=== PATIENT | female | born 1945 | race Hispanic/Latino ===

== ENCOUNTER 2017-06-30 07:58 | Emergency (ER) | payer OTHER ==
[2017-06-30 08:16] VITALS: BMI 23.9
[2017-06-30 08:17] VITALS: TEMP 97.8
--- NOTE | 2017-06-30 08:29 | ED PDOC ---
Arrival/HPI - General Chief Complaint: Palpitations Time Seen by Provider: 06/30/17 08:13 Historian: Patient - History of Present Illness Narrative History of Present Illness (Text): 06/30/17 08:15 Phyllis Kline is a 71 year old female, whose past medical history includes hypertension, who presents to the emergency department complaining of palpitations and hypertension. Patient reports she also feels fatigue due to lack of sleep. Patient denies any chest pain, shortness of breath, abdominal pain, or other complaints. PMD: Dr. Shirley Larson Time/Duration: Prior to Arrival Symptom Onset: Sudden Symptom Course: Improving Past Medical History - Provider Review Nursing Documentation Reviewed: Yes - Infectious Disease Hx of Infectious Diseases: None - Tetanus Immunization Tetanus Immunization: Unknown - Cardiac Hx Hypertension: Yes - Psychiatric Hx Depression: No Hx Emotional Abuse: No Hx Physical Abuse: No Hx Substance Use: No - Surgical History Hx Section: Yes - Suicidal Assessment Feels Threatened In Home Enviroment: No Family/Social History - Physician Review Nursing Documentation Reviewed: Yes Family/Social History: Unknown Family HX Smoking Status: Never Smoked Hx Alcohol Use: No Hx Substance Use: No Hx Substance Use Treatment: No Allergies/Home Meds Allergies/Adverse Reactions: Allergies Penicillins Allergy (Verified 06/30/17 08:21) RASH Home Medications: Home Meds Medication Instructions Recorded Confirmed Escitalopram Oxalate [Lexapro] 10 mg PO DAILY 05/09/13 06/30/17 Valsartan [Diovan] 40 mg PO DAILY 06/30/17 06/30/17 Review of Systems - Review of Systems Constitutional: Fatigue. absent: Fevers Eyes: absent: Vision Changes Respiratory: absent: SOB, Cough Cardiovascular: Palpitations. absent: Chest Pain Gastrointestinal: absent: Abdominal Pain, Vomiting Genitourinary Female: absent: Dysuria Musculoskeletal: absent: Back Pain Neurological: absent: Headache Endocrine: absent: Diaphoresis Physical Exam Vital Signs Reviewed: Yes Vital Signs Temp Pulse Resp BP Pulse Ox 06/30/17 09:22 63 18 135/87 100 06/30/17 08:16 97.8 F 138 H 20 140/100 H 99 Temperature: Afebrile Blood Pressure: Hypertensive Pulse: Tachycardic Respiratory Rate: Normal Appearance: Positive for: Well-Appearing, Non-Toxic, Comfortable Pain Distress: None Mental Status: Positive for: Alert and Oriented X 3 - Systems Exam Head: Present: Atraumatic, Normocephalic Pupils: Present: PERRL Extroacular Muscles: Present: EOMI Conjunctiva: Present: Normal Respiratory/Chest: Present: Clear to Auscultation, Good Air Exchange. No: Respiratory Distress, Accessory Muscle Use Cardiovascular: Present: Regular Rate and Rhythm, Normal S1, S2. No: Murmurs Abdomen: Present: Normal Bowel Sounds. No: Tenderness, Distention, Peritoneal Signs, Rebound, Guarding Neurological: Present: GCS=15, CN II-XII Intact, Speech Normal Skin: Present: Warm, Dry, Normal Color. No: Rashes Psychiatric: Present: Alert, Oriented x 3, Normal Insight, Normal Concentration Medical Decision Making ED Course and Treatment: palitiations h/o of ablation - upon triage hr 140, however broke prior to my assessment. symptom free on my assessment 06/30/17 EKG: Ordered, reviewed, and independently interpreted the EKG. Rate : 82 BPM Rhythm : NSR Interpretation : PVC's. No ST-segment elevations or depressions, no T-wave inversions, normal intervals. 06/30/17 10:00 Chest X-ray: Creator : DR. Garcia, Kain OLIVO FINDINGS: LUNGS: No active pulmonary disease. PLEURA: No significant pleural effusion identified, no pneumothorax apparent. CARDIOVASCULAR: No radiographic findings to suggest acute or significant cardiovascular disease. OSSEOUS STRUCTURES: No significant abnormalities. VISUALIZED UPPER ABDOMEN: Normal. OTHER FINDINGS: None. IMPRESSION: No active disease. 06/30/17 11:12 requested pt be admitted and observed given triage hr 140. pt refuses, signs ama. - Lab Interpretations Lab Results: 06/30/17 08:30 06/30/17 08:30 Lab Results 06/30/17 08:30: Blood Type A POSITIVE, Antibody Screen Negative, BBK History Checked No verified bt 06/30/17 08:30: Sodium 139, Potassium 3.6, Chloride 103, Carbon Dioxide 25, Anion Gap 14, BUN 14, Creatinine 0.8, Est GFR ( Amer) > 60, Est GFR (Non- Af Amer) > 60, Random Glucose 106, Calcium 9.9, Magnesium 2.0, Total Bilirubin 1.3, AST 35, ALT 35, Alkaline Phosphatase 97, Lactate Dehydrogenase 475, Total Creatine Kinase 68, Troponin I < 0.01, Total Protein 7.5, Albumin 4.4, Globulin 3.2, Albumin/Globulin Ratio 1.4 06/30/17 08:30: PT 11.0, INR 1.00, APTT 31.6 06/30/17 08:30: WBC 5.8, RBC 4.82, Hgb 14.4, Hct 42.9, MCV 89.0, MCH 29.9, MCHC 33.6, RDW 14.2, Plt Count 232, MPV 10.2, Gran % 59.1, Lymph % (Auto) 29.4, [place] % (Auto) 8.8 H, Eos % (Auto) 2.2, Baso % (Auto) 0.5, Gran # 3.44, Lymph # 1.7, [place] # 0.5, Eos # 0.1, Baso # 0.03 I have reviewed the lab results: Yes - RAD Interpretation Radiology Orders: 06/30/17 08:24 CHEST PORTABLE [RAD] Stat Legal Records Clerk: Radiologist - EKG Interpretation Interpreted by ED Physician: Yes Type: 12 lead EKG - Scribe Statement The provider has reviewed the documentation as recorded by the Scribe Debo Acevedo Provider Scribe Attestation: All medical record entries made by the Scribe were at my direction and personally dictated by me. I have reviewed the chart and agree that the record accurately reflects my personal performance of the history, physical exam, medical decision making, and the department course for this patient. I have also personally directed, reviewed, and agree with the discharge instructions and disposition. Disposition/Present on Arrival - Present on Arrival Any Indicators Present on Arrival: No History of DVT/PE: No History of Uncontrolled Diabetes: No Urinary Catheter: No History of Decub. Ulcer: No History Surgical Site Infection Following: None - Disposition Have Diagnosis and Disposition been Completed?: Yes Diagnosis: Palpitations Disposition: AGAINST MEDICAL ADVICE Disposition Time: 09:30 Condition: STABLE Discharge Instructions (ExitCare): Chest Pain (ED), Palpitations (ED), Against Medical Advice (ED) Additional Instructions: you are declining admission. you are able to return to emergency room with worsening symptoms or concerns. Referrals: Shirley Castle MD [Primary Care Provider] - Follow up with primary Addis Tovar MD [Staff Provider] - Follow up with primary Forms: [employer] ([place])
[2017-06-30 08:43] LABS: BASO # 0.03 K/mm3 (0.0-2.0); BASO % 0.5 % (0.0-3.0); EOS # 0.1 (0.0-0.7); EOS % 2.2 % (1.5-5.0); GRAN # 3.44 (1.4-6.5); GRAN % 59.1 % (50.0-68.0); HEMATOCRIT 42.9 % (36.0-48.0); LYMPH # 1.7 (1.2-3.4); LYMPH % 29.4 % (22.0-35.0); MEAN CORPUSCULAR HEMOGLOBIN 29.9 pg (25.0-35.0); MEAN CORPUSCULAR HGB CONC 33.6 g/dl (31.0-37.0); MEAN PLATELET VOLUME 10.2 fl (7.0-11.0); MONO # 0.5 (0.1-0.6); MONO % 8.8 % (1.0-6.0); RED CELL DISTRIBUTION WIDTH 14.2 % (11.5-14.5); WHITE BLOOD COUNT 5.8 10^3/ul (4.5-11.0)
[2017-06-30 08:52] LABS: PARTIAL THROMBOPLASTIN TIME 31.6 Seconds (25.1-36.5)
[2017-06-30 08:54] LABS: ALB/GLOB RATIO 1.4 (1.1-1.8); ALKALINE PHOSPHATASE 97 U/L (38-126); ALT/SGPT 35 U/L (7-56); AST/SGOT 35 U/L (14-36); BILIRUBIN,TOTAL 1.3 mg/dL (0.2-1.3); BLOOD UREA NITROGEN 14 mg/dL (7-21); CALCIUM 9.9 mg/dL (8.4-10.5); CARBON DIOXIDE 25 mmol/L (21-33); CHLORIDE 103 mmol/L (98-107); GFR AFRICAN-AMERICAN > 60; GLUCOSE,RANDOM 106 mg/dL (70-110); POTASSIUM 3.6 mmol/L (3.6-5.0); SODIUM 139 mmol/L (132-148); TOTAL PROTEIN 7.5 g/dL (5.8-8.3)
[2017-06-30 09:05] LABS: TROPONIN I < 0.01 ng/mL
[2017-06-30 09:22] VITALS: BP 135/87; PULSE 63; RESP 18; O2SAT 100
--- NOTE | 2017-06-30 09:54 | RAD ---
HISTORY: Chest pain. COMPARISON: No prior. FINDINGS: LUNGS: No active pulmonary disease. PLEURA: No significant pleural effusion identified, no pneumothorax apparent. CARDIOVASCULAR: No radiographic findings to suggest acute or significant cardiovascular disease. OSSEOUS STRUCTURES: No significant abnormalities. VISUALIZED UPPER ABDOMEN: Normal. OTHER FINDINGS: None. IMPRESSION: No active disease.
--- NOTE | 2017-07-01 00:20 | CARD ---
APPROVED REPORT EKG Measurement Heart [id number] VT [id number] <Conclusion> Sinus rhythm with premature atrial complexes Nonspecific ST abnormality Abnormal ECG
== END 2017-06-30 09:31 | disposition left against medical advice (07) ==
LOC: ED 07:58
DX: R00.2 Palpitations (principal); I10 Essential (primary) hypertension; Z88.0 Allergy status to penicillin

== ENCOUNTER 2017-08-01 09:11 | Day surgery (SDC) | payer MEDICARE, OTHER ==
[2017-07-29 10:00] VITALS: BMI 25.7
[2017-08-01 10:57] VITALS: TEMP 98.1; O2SAT 98
[2017-08-01] MEDS ORDERED: Lidocaine 2% Inj (20ml) ONE (11:23)
[2017-08-01] MEDS ORDERED: Propofol 10 mg/ml Inj (20 ML) ONE (11:24)
[2017-08-01] MEDS ORDERED: Sodium Chloride 0.9% 1,000 ML IV SCH (11:45)
[2017-08-01 11:52] VITALS: PULSE 60
[2017-08-01 11:59] VITALS: BP 136/76; RESP 17
== END 2017-08-01 13:44 | disposition home or self-care (01) ==
LOC: ENDO 09:11
PROVIDERS: ATTEND Internal Medicine Gastroenterology
DX: K31.7 Polyp of stomach and duodenum (principal); K29.50 Unspecified chronic gastritis without bleeding; K44.9 Diaphragmatic hernia without obstruction or gangrene
CPT/HCPCS: 43239; 88305; 88342; J2704; J7040 ×2